=== PATIENT | female | born 1980 | race Caucasian/White ===

== ENCOUNTER 2016-08-30 06:23 | Emergency (ER) | payer BC ==
--- NOTE | 2016-08-30 07:11 | ER Document Report ---
ED GI/ - General Mode of Arrival: Ambulatory Information source: Patient TRAVEL OUTSIDE OF THE [place] IN LAST 30 DAYS: No - HPI Patient complains to provider of: Vomiting Associated symptoms: Other - See above <CHRISTIE CHAVEZ - Last Filed: 08/30/16 07:34> <JESSICAJANNETH - Last Filed: 08/30/16 15:39> - General Chief Complaint: Nausea/Vomiting Stated Complaint: VOMITING Time Seen by Provider: 08/30/16 06:40 Notes: Patient is a 36 year old female, with a past medical history including GERD, who presents to the emergency department complaining of vomiting onset at 0300 this morning. Patient reports that she has not been taking her OTC Omeprazole for the past 2-3 days and yesterday she ate pizza for dinner and has been drinking soda, tea, and coffee. Patient also complains of chest pain, abdominal pain, and burning in her mouth. Patient denies hematuria. Patient states that she bought some Omeprazole this morning and tried to take it but has not been able to keep anything down. 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 (CHRISTIE CHAVEZ) - Related Data Allergies/Adverse Reactions: No Known Allergies Allergy (Unverified 08/30/16 06:32) Past Medical History - General Information source: Patient - Social History Smoking Status: Never Smoker Frequency of alcohol use: None Family History: Reviewed & Not Pertinent Patient has suicidal ideation: No Patient has homicidal ideation: No GI Medical History: Reports: Hx Gastroesophageal Reflux Disease <CHRISTIE CHAVEZ - Last Filed: 08/30/16 07:34> Review of Systems - Review of Systems Constitutional: No symptoms reported EENT: No symptoms reported, Mouth pain Cardiovascular: See HPI, Chest pain Respiratory: No symptoms reported Gastrointestinal: See HPI, Abdominal pain, Vomiting Genitourinary: denies: Hematuria Female Genitourinary: No symptoms reported Musculoskeletal: No symptoms reported Skin: No symptoms reported Hematologic/Lymphatic: No symptoms reported Neurological/Psychological: No symptoms reported -: Yes All other systems reviewed and negative <CHRISTIE CHAVEZ - Last Filed: 08/30/16 07:34> Physical Exam - Vital signs Interpretation: Normal - General General appearance: Appears well, Alert - HEENT Head: Normocephalic, Atraumatic - Respiratory Respiratory status: No respiratory distress Chest status: Nontender Breath sounds: Normal Chest palpation: Normal - Cardiovascular Rhythm: Regular Heart sounds: Normal auscultation Murmur: No - Abdominal Inspection: Normal Distension: No distension Bowel sounds: Normal Tenderness: Nontender Organomegaly: No organomegaly - Extremities General upper extremity: Normal inspection General lower extremity: Normal inspection - Neurological Neuro grossly intact: Yes Cognition: Normal Orientation: AAOx4 Amber Coma Scale Eye Opening: Spontaneous [place] Coma Scale Verbal: Oriented Amber Coma Scale Motor: Obeys Commands Amber Coma Scale Total: 15 Speech: Normal - Psychological Associated symptoms: Normal affect, Normal mood - Skin Skin Temperature: Warm Skin Moisture: Dry Skin Color: Normal <CHRISTIE CHAVEZ - Last Filed: 08/30/16 07:34> Course - Laboratory Result Diagrams: 08/30/16 07:02 08/30/16 07:02 <CHRISTIE CAHVEZ - Last Filed: 08/30/16 07:34> - Laboratory Result Diagrams: 08/30/16 07:02 08/30/16 07:02 <JANNETH LOPEZ - Last Filed: 08/30/16 15:39> - Re-evaluation Re-evalutation: 08/30/16 08:59 Patient presents emergency department with a chief complaint of epigastric abdominal pain nausea and vomiting. She has a history of GERD and says she has not taken her medication a couple days. She is tasting acid in her mouth and is burning up into her chest. She denies any fevers chills cough chest pain shortness breath diarrhea or urinary complaints. On examination she is well- appearing nontoxic mild epigastric abdominal tenderness associated with guarding rebound rigidity. No mass or hernias. When he gave her IV fluids nausea medication GI cocktail. Labs are nonacute no acute white count elevation elevated lipase or liver enzyme abnormality. Be discharged home on Carafate to start her GERD medication take daily avoid alcohol cigarettes and caffeine. Follow-up primary care physician in 2-3 days and discussed reasons for ED return sooner (JANNETH LOPEZ) - Vital Signs Vital signs: Temp Pulse Resp BP Pulse Ox 97.6 F 70 20 108/67 96 08/30/16 09:34 08/30/16 09:34 08/30/16 06:28 08/30/16 09:34 08/30/16 09:34 - Laboratory Laboratory results interpreted by me: 08/30/16 08/30/16 08/30/16 07:02 07:02 07:37 MCV 79 L MCH 26.7 L RDW 14.2 H Glucose 125 H Urine Blood SMALL H Ur Leukocyte Esterase TRACE H Discharge <CHRISTIE CHAVEZ - Last Filed: 08/30/16 07:34> <JANNETH LOPEZ - Last Filed: 08/30/16 15:39> - Discharge Clinical Impression: Epigastric abdominal pain, Vomiting Condition: Stable Disposition: HOME, SELF-CARE Instructions: Abdominal Pain ([facility]), Antinausea Medication ([facility]) Prescriptions: Sucralfate [Carafate 1 gm Tablet] 1 gm PO ACHS #20 tablet Referrals: [facility] [Provider Group] (Please take your current medication as prescribed and not miss any doses follow-up his primary care physician in 2- 3 days return for increasing worsening or new symptoms) Scribe Attestation: 08/30/16 08:59 I personally performed the services described in the documentation reviewed the documentation recorded by my scribe in my presence and it accurately and completely records my words and actions (JANNETH LOPEZ) Scribe Documentation - Scribe Written by Bernice:: bernice Davis, 08/30/16, 0735 acting as scribe for :: Jessica <CHRISTIE CHAVEZ - Last Filed: 08/30/16 07:34>
[2016-08-30] MEDS ORDERED: ONDANSETRON HCL INJ/PF 4 MG/2 ML SDV IV ONE (07:25)
[2016-08-30] MEDS ORDERED: METOCLOPRAMIDE HCL ORAL SOLN 10 MG/10 ML UDCUP PO ONE (07:25)
[2016-08-30] MEDS ORDERED: MAG HYDROX/AL HYDROX/SIMETH SUSP 30 ML UDCUP PO ONE (07:25)
[2016-08-30] MEDS ORDERED: LIDOCAINE 2% VISCOUS SOLN 20 ML UDCUP PO ONE (07:25)
[2016-08-30 07:34] LABS: ABSOLUTE BASOPHILS # (AUTO) 0.1 10^3/uL (0.0-0.2); ABSOLUTE EOSINOPHILS # (AUTO) 0.1 10^3/uL (0.0-0.6); ABSOLUTE MONOCYTES (AUTO) 0.3 10^3/uL (0.1-1.4); ABSOLUTE NEUT (AUTO) 5.3 10^3/uL (1.7-8.2); BASOPHILS % (AUTO) 0.7 % (0-2); HEMATOCRIT 36.3 % (36.0-47.0); HEMOGLOBIN 12.2 g/dL (12.0-15.5); HGB HCT DIFFERENCE 0.3; LYMPHOCYTES % (AUTO) 26.1 % (13-45); MEAN CORPUSCULAR HEMOGLOBIN 26.7 pg (27.0-33.4); MEAN CORPUSCULAR HGB CONC 33.6 g/dL (32.0-36.0); MEAN CORPUSCULAR VOLUME 79 fl (80-97); MONOCYTES % (AUTO) 3.4 % (3-13); RED BLOOD COUNT 4.57 10^6/uL (3.72-5.28); RED CELL DISTRIBUTION WIDTH 14.2 % (11.5-14.0); SEGMENTED NEUTROPHILS % (AUTO) 68.8 % (42-78); WHITE BLOOD COUNT 7.7 10^3/uL (4.0-10.5)
[2016-08-30] MEDS ORDERED: NORMAL SALINE 1000 ML 1,000 ML IV ONE (07:49)
[2016-08-30 08:02] LABS: APPEARANCE,URINE SLIGHTLY-CLOUDY; BILIRUBIN,URINE NEGATIVE (NEGATIVE); GLUCOSE, URINE NEGATIVE (NEGATIVE); KETONES,URINE NEGATIVE (NEGATIVE); LEUKOCYTE ESTERASE,URINE TRACE (NEGATIVE); NITRITE,URINE NEGATIVE (NEGATIVE); PROTEIN,URINE NEGATIVE (NEGATIVE); URINE SPECIFIC GRAVITY 1.025; UROBILINOGEN,URINE NEGATIVE mg/dL (<2.0)
[2016-08-30 08:16] LABS: ALANINE AMINOTRANSFERASE 34 U/L (9-52); ALBUMIN 4.1 g/dL (3.5-5.0); ALKALINE PHOSPHATASE 79 U/L (38-126); ANION GAP 13 (5-19); ASPARTATE AMINO TRANSFERASE 26 U/L (14-36); BILIRUBIN,DIRECT 0.2 mg/dL (0.0-0.4); BILIRUBIN,TOTAL 0.3 mg/dL (0.2-1.3); BLOOD UREA NITROGEN 12 mg/dL (7-20); CALCIUM 8.8 mg/dL (8.4-10.2); CARBON DIOXIDE 24 mmol/L (22-30); CHLORIDE 105 mmol/L (98-107); CREATININE RESULT 0.63 mg/dL (0.52-1.25); GLUCOSE 125 mg/dL (75-110); LIPASE 160.6 U/L (23-300); POTASSIUM 3.6 mmol/L (3.6-5.0); SODIUM 141.8 mmol/L (137-145); TOTAL PROTEIN 7.2 g/dL (6.3-8.2)
[2016-08-30 09:50] VITALS: BP 108/67
--- NOTE | 2016-08-30 17:49 | EKG REPORT ---
SEVERITY:- BORDERLINE ECG - SINUS RHYTHM BORDERLINE T ABNORMALITIES, INFERIOR LEADS : Confirmed by: Lexus Mckeon MD 30-Aug-2016 17:48:25
== END 2016-08-30 09:35 | disposition home or self-care (01) ==
LOC: ER 06:23
DX: K21.9 Gastro-esophageal reflux disease without esophagitis (principal); R11.2 Nausea with vomiting, unspecified; R10.13 Epigastric pain; T47.1X6A Underdosing of other antacids and anti-gastric-secretion drugs, initial encounter; Z91.14 Patient's other noncompliance with medication regimen; K13.79 Other lesions of oral mucosa; R07.9 Chest pain, unspecified; Z87.19 Personal history of other diseases of the digestive system
CPT/HCPCS: 93005; 99283; 96361; 96374; 36415; 83690; 85025; 81025; 80053; 81001; 93010; J3490; J2405; J7030

== ENCOUNTER 2018-06-13 11:30 | Emergency (ER) | payer OTHER, BC ==
[2018-06-13] MEDS ORDERED: HYDROCODONE/ACETAMINOPHEN 5-325 MG TABLET PO ONE (11:54)
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
[2018-06-13 13:07] VITALS: BP 125/69
== END 2018-06-13 13:07 | disposition home or self-care (01) ==
LOC: ER 11:30
DX: M54.5 Low back pain (principal); V43.62XA Car passenger injured in collision with other type car in traffic accident, initial encounter
CPT/HCPCS: 72110; 99283